=== PATIENT | male | born 1975 | race Hispanic/Latino ===

== ENCOUNTER 2018-07-01 01:34 | Emergency (ER) | payer OTHER ==
[2018-07-01] MEDS ORDERED: LIDOCAINE HCL 2% VISCOUS 15 ML UDCUP ONE (02:12)
== END 2018-07-01 02:51 | disposition home or self-care (01) ==
LOC: EDH 01:34
DX: T16.1XXA Foreign body in right ear, initial encounter (principal); Z72.0 Tobacco use; X58.XXXA Exposure to other specified factors, initial encounter; Y93.89 Activity, other specified; Y92.89 Other specified places as the place of occurrence of the external cause; Y99.8 Other external cause status
CPT/HCPCS: 69200